=== PATIENT | female | born 1975 | race Caucasian/White ===

== ENCOUNTER 2017-02-08 06:38 | Day surgery (SDC) | payer BC ==
[2017-02-08] MEDS ORDERED: Propofol 200 MG/20 ML SDV IV ONE (06:39)
[2017-02-08] MEDS ORDERED: Glycopyrrolate 0.2 MG/ML 2 ML SDV IV ONE (06:39)
[2017-02-08] MEDS ORDERED: fentaNYL 100 MCG/2 ML SDV IV ONE (06:39)
[2017-02-08] MEDS ORDERED: Lidocaine 1% 30 ML SDV INJECT ONE ×2 (06:39→08:12)
[2017-02-08] MEDS ORDERED: Ondansetron 4 MG/2 ML SDV IV ONE (06:39)
[2017-02-08] MEDS ORDERED: Midazolam 1 MG/ML 2 ML SDV IV ONE (06:39)
[2017-02-08] MEDS ORDERED: Ketorolac 30 MG/ML SDV IVPUSH ONE (06:39)
[2017-02-08] MEDS ORDERED: Dexamethasone 4 MG/ML SDV IV ONE (06:39)
[2017-02-08] MEDS ORDERED: Scopolamine 1.5 MG Transdermal Patch TRDERM ONE (07:30)
[2017-02-08] MEDS: Lactated Ringers 1,000 ML IV SCH ×2 (07:35→09:10)
[2017-02-08] MEDS ORDERED: Scopolamine 1.5 MG Transdermal Patch ONE (07:39)
[2017-02-08] MEDS ORDERED: Lidocaine 1% 30 ML SDV ONE (07:40)
--- NOTE | 2017-02-08 09:25 | OR ---
DATE: 02/08/2017 PREOPERATIVE DIAGNOSIS: Umbilical hernia. POSTOPERATIVE DIAGNOSIS: Umbilical hernia. PROCEDURES: Open umbilical hernia repair. ANESTHESIA: General. SPECIMEN: None. OPERATIVE FINDING: A small 1 cm umbilical hernia. INDICATION FOR PROCEDURE: This 41-year-old female has had a symptomatic umbilical hernia over the last several years, it is reducible and very tiny. Risks, benefits, and expected outcomes of an open repair were discussed with her. PROCEDURE: After adequate preparation, a semicircular incision was made infraumbilically and carried down to the fascial layer. The umbilicus was then freed up from the underlying hernia sac. This was dissected free to expose the hernia base. The contents of the preperitoneal fat were reduced back into the abdomen and the hernia closed using interrupted 0 Prolene suture. A 3-0 Vicryl was then used to close the umbilical subcutaneous space and 4-0 Monocryl for the skin. Patient tolerated the procedure well. [facility] /[id number]
[2017-02-08 11:39] VITALS: BP 114/66
--- NOTE | 2017-02-08 12:33 | PCM.SN ---
- Free Text/Narrative Note: Discharge. Pt discharged home after discharge criteria met. No anesthesia concerns noted.
== END 2017-02-08 11:10 | disposition home or self-care (01) ==
LOC: DL.SDS 06:38 → EDSTATUS 08:00 → DL.SDS 11:10
PROVIDERS: ATTEND Surgery
DX: K42.9 Umbilical hernia without obstruction or gangrene (principal); Z88.8 Allergy status to other drugs, medicaments and biological substances; Z79.899 Other long term (current) drug therapy; Z98.890 Other specified postprocedural states
CPT/HCPCS: 49585; A9270; J1100; J1885; J2250; J2405; J2704; J3010; J7120; J3490

== ENCOUNTER 2024-06-05 05:30 | Day surgery (SDC) | payer BC, OTHER ==
[2024-06-05] MEDS: Dextrose 5%-0.45% NaCl 1,000 ML IV SCH (05:52)
[2024-06-05] MEDS ORDERED: Midazolam 1 MG/ML 2 ML SDV IV ONE (06:05)
[2024-06-05] MEDS ORDERED: Midazolam 1 MG/ML 2 ML SDV ONE (06:05)
[2024-06-05] MEDS ORDERED: fentaNYL 100 MCG/2 ML SDV ONE (06:05)
[2024-06-05] MEDS ORDERED: fentaNYL 100 MCG/2 ML SDV IV ONE (06:05)
[2024-06-05] MEDS: fentaNYL 100 MCG/2 ML SDV IV ONE ×6 (06:30→06:40)
[2024-06-05] MEDS: Midazolam 1 MG/ML 2 ML SDV IV ONE ×7 (06:31→06:51)
[2024-06-05 09:18] VITALS: BP 116/63; PULSE 55
== END 2024-06-05 09:10 | disposition home or self-care (01) ==
LOC: DL.ENDO 05:30
PROVIDERS: ATTEND Internal Medicine Gastroenterology
DX: Z12.11 Encounter for screening for malignant neoplasm of colon (principal); D12.3 Benign neoplasm of transverse colon; D12.2 Benign neoplasm of ascending colon; K63.5 Polyp of colon; Z88.8 Allergy status to other drugs, medicaments and biological substances; Z86.0100 Personal history of colon polyps, unspecified
CPT/HCPCS: 45385; J2250; J3010; J7799